=== PATIENT | female | born 1965 | race African-American/Black ===

== ENCOUNTER 2021-12-19 14:36 | Emergency (ER) | payer SELFPAY ==
[~2021-12-19] VITALS: Ht 165.1 cm; Wt 95.8 kg
[2021-12-19 14:40] VITALS: BP 140/97
[2021-12-19] MEDS ORDERED: predniSONE 20 MG TABLET PO ONE (15:15)
[2021-12-19] MEDS ORDERED: IPRATRPIUM/ALBUTEROL 0.5/2.5MG 3 ML NEBU. NEB ONE (15:15)
--- NOTE | 2021-12-19 15:33 | RAD ---
Single AP view of the chest. Comparison: None. Indication: Cough and shortness of breath Findings: The heart is not enlarged. There is no pneumothorax or effusion. No air space or interstitial diseas e. Impression: 1. No acute cardiopulmonary process. Electronically signed by: Calvin Mejia MD (12/19/2021 3:31 PM) [facility]
[2021-12-19] MEDS ORDERED: PRED50TA PO (16:00)
--- NOTE | 2021-12-19 16:00 | PHYS DOC ---
Past Medical History Past Surgical History: No Surgical History General Adult EDM: Chief Complaint: COUGH HPI: HPI: Patient is a 56-year-old female who presents to the emergency department complaining of a cough for the past 10 days. Patient reports it seems to be worse in the morning when she wakes up. Patient states she is asthmatic and does feel better after a breathing treatment she took today. Patient reports she usually feels better after a breathing treatment in the emergency department and is started on prednisone. Patient denies recent fever or chills, denies nasal congestion, denies sore throat, denies chest pains or chest palpitations. Patient states she has not been hospitalized for her asthma. Patient denies other physical complaints or physical concerns. Review of Systems: Review of Systems: 14 body systems of review of systems have been reviewed. See HPI for pertinent positives and negative responses, otherwise all other systems are negative, nonpertinent or noncontributory. Constitutional: Negative except as outlined in HPI above. Skin: Negative except as outlined in HPI above. Eyes: Negative except as outlined in HPI above. HENT: Negative except as outlined in HPI above. Respiratory: Negative except as outlined in HPI above. Cardiovascular: Negative except as outlined in HPI above. GI: Negative except as outlined in HPI above. : Negative except as outlined in HPI above. Musculoskeletal: Negative except as outlined in HPI above. Integument: Negative except as outlined in HPI above. Neurologic: Negative except as outlined in HPI above. Endocrine: Negative except as outlined in HPI above. Lymphatic: Negative except as outlined in HPI above. Psychiatric: Negative except as outlined in HPI above. Heart Score: C/O Chest Pain: No Risk Factors: Risk Factors: DM, Current or recent (<one month) smoker, HTN, HLP, family history of CAD, obesity. Risk Scores: Score 0 - 3: 2.5% MACE over next 6 weeks - Discharge Home Score 4 - 6: 20.3% MACE over next 6 weeks - Admit for Clinical Observation Score 7 - 10: 72.7% MACE over next 6 weeks - Early Invasive Strategies Current Medications: Current Medications Medications (Trade) Dose Ordered Sig/Roger Start Time Stop Time Status Last Admin Dose Admin Albuterol/ Ipratropium (Duoneb) 3 ml 1X ONCE 12/19/21 15:15 12/19/21 15:16 DC 12/19/21 15:23 3 ML Prednisone (Prednisone) 60 mg 1X ONCE 12/19/21 15:15 12/19/21 15:16 DC 12/19/21 15:45 60 MG Allergies: Allergies: Allergies Coded Allergies Type Severity Reaction Last Updated Verified No Known Drug Allergies 12/19/21 No Physical Exam: PE: Constitutional: Well developed, well nourished, no acute distress, non-toxic appearance. 56-year-old female in no apparent distress. HENT: Normocephalic, atraumatic. Eyes: Conjunctiva normal, no discharge. Neck: Normal range of motion, no stridor. Cardiovascular: No cyanosis appreciated, distal cap refill less than 2 seconds. Lungs & Thorax: Patient is in no respiratory distress, no audible adventitious lung sounds appreciated. Normal work of breathing, however there is inspiratory/expiratory wheezing to all lung [place] per auscultation. Abdomen: Nontender, no abnormalities noted. Skin: Warm, dry, no erythema, no rash. Back: No tenderness, no deformities. Extremities: No tenderness, no cyanosis, no clubbing, ROM intact, no edema. Neurologic: Alert and oriented X 3, normal motor function, normal sensory function, no focal deficits noted. Psychologic: Affect normal, judgement normal, mood normal. Current Patient Data: Vital Signs: Vital Signs Date Time Temp Pulse Resp B/P (MAP) Pulse Ox O2 Delivery O2 Flow Rate FiO2 12/19/21 15:23 99 Room Air 12/19/21 14:40 98.5 100 18 140/97 (111) 98.5 EKG: EKG: [] Radiology/Procedures: Radiology/Procedures: REASON: Cough, short of breath PROCEDURE: CHEST AP ONLY Single AP view of the chest. Comparison: None. Indication: Cough and shortness of breath Findings: The heart is not enlarged. There is no pneumothorax or effusion. No air space or interstitial disease. Impression: 1. No acute cardiopulmonary process. Electronically signed by: Calvin Mejia MD (12/19/2021 3:31 PM) [facility] Course & Med Decision Making: Course & Med Decision Making Pertinent Labs and Imaging studies reviewed. (See chart for details) 56-year-old female, vital signs reviewed, resents emergency department concerning cough for the past 10 days. Patient's physical examination concerning for mild asthma exacerbation. Will order chest x-ray, DuoNeb treatment, oral prednisone. After period of time, upon reexamination of the patient, patient states he feels much better now and is ready to go home. Discussed with patient will prescribe a regimen of prednisone. Discussed follow-up with primary care soon, return to ER precautions or concerns were reviewed, patient gave verbal understanding of and is amenable to ED discharge planning. Discussed with the patient all findings and diagnostic testing as well as the need to follow-up with their primary care provider for further evaluation and treatment or return to the ED if any new or worsening symptoms. Strict return precautions were also discussed at length, the patient voiced understanding and agreement with the discharge planning. The patient was nontoxic in appearance, in no apparent distress, and hemodynamically stable at the time of disposition. Dragon Disclaimer: [email or web address] Disclaimer: This electronic medical record was generated, in whole or in part, using a voice recognition dictation system. Departure Departure Impression: Primary Impression: Asthma exacerbation Qualified Codes: J45.21 - Mild intermittent asthma with (acute) exacerbation Disposition: 01 HOME / SELF CARE / HOMELESS Condition: GOOD Patient Instructions: Asthma, Adult Additional Instructions: You were seen today in the emergency department for a cough for the past week and a half, during your examination was concerning you may have an exacerbation of asthma, you were treated with prednisone and a nebulizer breathing treatment. This seems to have helped with your symptoms. Your chest x-ray did not show any concerning findings of pulmonary disease as we discussed please continue to follow-up with your primary care provider Heaven Harden NP for ongoing or returning symptoms. I am prescribing you a prednisone regimen, please take as directed until complete. Thank you for visiting our Emergency Department. It was a pleasure taking care of you today in the emergency department and we appreciate you trusting us with your care. If any additional problems come up don't hesitate to return to visit us. Please follow up with your primary care provider so they can plan additional care if needed and know about the problem that you had. If symptoms worsen come back to the Emergency Department. Any concerning symptoms that start such as chest pain, shortness of air, weakness or numbness on one side of the body, running high fevers or any other concerning symptoms return to the ER. Scripts Prednisone (PREDNISONE) 50 Mg Tablet 1 TAB PO DAILY, #5 TAB 0 Refills Prov: SARAH MANZANARES APRN 12/19/21 SARAH MANZANARES APRN Dec 19, 2021 16:00
== END 2021-12-19 16:00 | disposition home or self-care (01) ==
LOC: ER 14:36
DX: J45.21 Mild intermittent asthma with (acute) exacerbation (principal)
CPT/HCPCS: 71045; 94640; 99283; J7512